=== PATIENT | male | born 1990 | race African-American/Black ===

== ENCOUNTER 2018-06-12 17:52 | Emergency (ER) | payer BC, OTHER ==
[~2018-06-12] VITALS: Ht 177.8 cm; Wt 77.1 kg
[2018-06-12 19:11] VITALS: BP 136/94
== END 2018-06-12 19:12 | disposition home or self-care (01) ==
LOC: ER 17:52
DX: F07.81 Postconcussional syndrome (principal)

== ENCOUNTER 2019-10-12 22:33 | Emergency (ER) | payer OTHER ==
[~2019-10-12] VITALS: Ht 177.8 cm; Wt 74.8 kg
[2019-10-13 00:44] VITALS: BP 130/92
== END 2019-10-13 00:47 | disposition home or self-care (01) ==
LOC: ER 22:33
PROVIDERS: Emergency Medicine
DX: S90.112A Contusion of left great toe without damage to nail, initial encounter (principal); Z11.3 Encounter for screening for infections with a predominantly sexual mode of transmission; W22.8XXA Striking against or struck by other objects, initial encounter; Y93.89 Activity, other specified; Y92.89 Other specified places as the place of occurrence of the external cause; Y99.9 Unspecified external cause status

== ENCOUNTER 2019-12-30 09:19 | Emergency (ER) | payer OTHER ==
[~2019-12-30] VITALS: Ht 180.3 cm; Wt 72.6 kg
[2019-12-30 09:24] VITALS: BP 129/86
[2019-12-30 10:06] LABS: URINE BILIRUBIN NEGATIVE (Negative); URINE BLOOD NEGATIVE (Negative); URINE CLARITY CLEAR; URINE COLOR YELLOW; URINE GLUCOSE-RANDOM* NEGATIVE (Negative); URINE KETONES NEGATIVE (Negative); URINE LEUKOCYTES-REFLEX TRACE (Negative); URINE NITRITE-REFLEX NEGATIVE (Negative); URINE PROTEIN (DIPSTICK) NEGATIVE (Negative); URINE SPECIFIC GRAVITY 1.015 (1.005-1.035); URINE UROBILINOGEN 0.2 E.U./dl (0.2-1.0)
[2020-01-01 19:07] LABS: SYPHILIS AB Reactive (Non Reactive)
== END 2019-12-30 11:17 | disposition home or self-care (01) ==
LOC: ER 09:19
PROVIDERS: Emergency Medicine
DX: Z20.2 Contact with and (suspected) exposure to infections with a predominantly sexual mode of transmission (principal); R30.0 Dysuria; F17.210 Nicotine dependence, cigarettes, uncomplicated

== ENCOUNTER 2020-02-26 14:54 | Emergency (ER) | payer OTHER ==
[~2020-02-26] VITALS: Ht 177.8 cm; Wt 72.6 kg
[2020-02-26 17:09] VITALS: BP 117/79
== END 2020-02-26 17:09 | disposition home or self-care (01) ==
LOC: ER 14:54
DX: Z20.2 Contact with and (suspected) exposure to infections with a predominantly sexual mode of transmission (principal); F17.210 Nicotine dependence, cigarettes, uncomplicated